=== PATIENT | male | born 1995 ===

== ENCOUNTER 2016-06-04 23:44 | Emergency (ER) | payer MEDICAID ==
[2016-06-05 00:03] VITALS: BMI 22.1
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
[2016-06-05 01:42] LABS: ADD MANUAL DIFF? NO
[2016-06-05 02:12] LABS: BASO # 0.02 K/mm3 (0.0-2.0); BASO % 0.2 % (0.0-3.0); EOS # 0.1 (0.0-0.7); GRAN # 5.99 (1.4-6.5); GRAN % 68.1 % (50.0-68.0); HEMATOCRIT 42.2 % (42.0-52.0); LYMPH # 1.7 (1.2-3.4); LYMPH % 19.1 % (22.0-35.0); MEAN CELL VOLUME 88.7 fL (80.0-105.0); MEAN CORPUSCULAR HEMOGLOBIN 30.9 pg (25.0-35.0); MEAN CORPUSCULAR HGB CONC 34.8 g/dl (31.0-37.0); MEAN PLATELET VOLUME 10.6 fl (7.0-11.0); MONO % 11.6 % (1.0-6.0); PLATELET COUNT 263 10^3/uL (120.0-450.0); RED CELL DISTRIBUTION WIDTH 12.8 % (11.5-14.5); WHITE BLOOD COUNT 8.8 10^3/ul (4.5-11.0)
[2016-06-05 02:23] LABS: ALB/GLOB RATIO 1.2 (1.1-1.8); ALKALINE PHOSPHATASE 94 U/L (38-133); ALT/SGPT 22 U/L (7-56); AST/SGOT 53 U/L (15-59); BILIRUBIN,TOTAL 0.6 mg/dL (0.2-1.3); BLOOD UREA NITROGEN 16 mg/dL (7-21); CALCIUM 8.8 mg/dL (8.4-10.5); CARBON DIOXIDE 19 mmol/L (21-33); CHLORIDE 103 mmol/L (98-107); GFR AFRICAN-AMERICAN > 60; GLUCOSE,RANDOM 112 mg/dL (70-110); POTASSIUM 3.6 mmol/L (3.6-5.0); SODIUM 139 mmol/L (132-148); TOTAL PROTEIN 8.4 g/dL (5.8-8.3)
--- NOTE | 2016-06-05 08:34 | RAD ---
HISTORY: medical clearance COMPARISON: No prior. FINDINGS: LUNGS: No active pulmonary disease. PLEURA: No significant pleural effusion identified, no pneumothorax apparent. CARDIOVASCULAR: Normal. OSSEOUS STRUCTURES: No significant abnormalities. VISUALIZED UPPER ABDOMEN: Normal. OTHER FINDINGS: None. IMPRESSION: No active disease.
[2016-06-05 13:27] VITALS: BP 124/79; PULSE 85; RESP 18; TEMP 98.2; O2SAT 96
--- NOTE | 2016-06-05 18:29 | CARD ---
APPROVED REPORT EKG Measurement Heart [id number] <Conclusion> Normal sinus rhythm Moderate voltage criteria for LVH, may be normal variant Borderline ECG
== END 2016-06-05 14:14 | disposition home or self-care (01) ==
LOC: ED 23:44
DX: F10.129 Alcohol abuse with intoxication, unspecified (principal); Y90.8 Blood alcohol level of 240 mg/100 ml or more
CPT/HCPCS: 71010; 80053; 80320; 80324; 80329; 80345; 80346; 80349; 80353; 80358; 80361; 83992; 85025; 93005; 96372; 99285; J1630; J2060

== ENCOUNTER 2016-07-10 11:49 | Emergency (ER) | payer MEDICAID ==
[2016-07-10 11:57] VITALS: RESP 18; TEMP 98.3; O2SAT 100; BMI 18.3
[2016-07-10] MEDS ORDERED: Sodium Chloride 0.9% 1,000 ML IV STA (12:04)
[2016-07-10] MEDS ORDERED: Morphine 2 mg/ml ISec IVP STA (12:05)
[2016-07-10] MEDS ORDERED: Levalbuterol 1.25 MG/3 ML Inhal Soln UD IH STA (12:11)
[2016-07-10 12:20] LABS: ADD MANUAL DIFF? NO
--- NOTE | 2016-07-10 12:21 | ED PDOC ---
Arrival/HPI - General Chief Complaint: GI Problem Time Seen by Provider: 07/10/16 11:52 Historian: Patient - History of Present Illness Narrative History of Present Illness (Text): 07/10/16 12:00 A 21 year old male, whose past medical history includes asthma and kidney stones , presents to the emergency department complaining of diffuse body pain, especial in the bilateral lower back, abdominal pain, nausea and vomiting. Patient reports he has been taking Advil for the back pain that has been present for a couple of days. He say last night when he took the Advil he began to feel nausea and had an episode of non bloody non bilious vomiting. He mentions he has been constipated for 2 days but denies any fever, urinary symptoms or other complaints at this time. PMD: Dr. Aponte Time/Duration: Other (couple of days) Symptom Onset: Sudden Symptom Course: Unchanged Quality: Other Activities at Onset: Rest Context: Home Past Medical History - Provider Review Nursing Documentation Reviewed: Yes - Infectious Disease Hx of Infectious Diseases: None - Tetanus Immunization Tetanus Immunization: Unknown - Cardiac Hx Cardiac Disorders: No Hx Hypertension: No - Pulmonary Hx Respiratory Disorders: Yes Hx Asthma: Yes - Neurological HX Cerebrovascular Accident: No Hx Seizures: No - HEENT Hx HEENT Disorder: No - Renal Hx Renal Disorder: Yes Hx Kidney Stones: Yes - Endocrine/Metabolic Hx Endocrine Disorders: No - Hematological/Oncological Hx Cancer: No - Integumentary Hx Dermatological Disorder: No - Musculoskeletal/Rheumatological Hx Musculoskeletal Disorders: Yes Hx Back Pain: Yes - Gastrointestinal Hx Gastrointestinal Disorders: No - Genitourinary/Gynecological Hx Sexually Transmitted Diseases: No - Psychiatric Hx Psychophysiologic Disorder: Yes Hx Depression: Yes Hx Substance Use: Yes (marijuana) - Anesthesia Hx Anesthesia: No Family/Social History - Physician Review Nursing Documentation Reviewed: Yes Family/Social History: Unknown Family HX Smoking Status: Heavy Smoker > 10 Cigarettes Daily Hx Alcohol Use: Yes Frequency of alcohol use: Socially Hx Substance Use: Yes (marijuana) Allergies/Home Meds Allergies/Adverse Reactions: Allergies No Known Allergies Allergy (Verified 07/10/16 12:08) Home Medications: Home Meds Medication Instructions Recorded Confirmed Albuterol HFA [Ventolin HFA 90 1 inh INH Q6 05/02/16 07/10/16 mcg/actuation (8 g)] Montelukast [Singulair] 10 mg PO DAILY 05/02/16 07/10/16 Loratadine [Claritin] 10 mg PO DAILY 07/10/16 07/10/16 Review of Systems - Physician Review All systems were reviewed & negative as marked: Yes - Review of Systems Constitutional: absent: Fevers Respiratory: absent: SOB, Cough Cardiovascular: absent: Chest Pain Gastrointestinal: Abdominal Pain, Constipation, Nausea, Vomiting. absent: Hematochezia Genitourinary Male: absent: Dysuria, Frequency, Hematuria, Urinary Output Changes Musculoskeletal: Back Pain, Myalgias Physical Exam Vital Signs Reviewed: Yes Vital Signs Temp Pulse Resp BP Pulse Ox 07/10/16 13:00 76 18 128/79 100 07/10/16 11:56 98.3 F 80 18 131/82 100 Temperature: Afebrile Blood Pressure: Normal Pulse: Regular Respiratory Rate: Normal Appearance: Positive for: Well-Appearing, Non-Toxic, Comfortable Pain Distress: None Mental Status: Positive for: Alert and Oriented X 3 - Systems Exam Head: Present: Atraumatic, Normocephalic Pupils: Present: PERRL Conjunctiva: Present: Normal Mouth: Present: Moist Mucous Membranes Pharnyx: Present: Normal. No: ERYTHEMA, EXUDATE Neck: Present: Normal Range of Motion Respiratory/Chest: Present: Clear to Auscultation, Good Air Exchange. No: Respiratory Distress, Accessory Muscle Use Cardiovascular: Present: Regular Rate and Rhythm, Normal S1, S2. No: Murmurs Abdomen: Present: Tenderness (tenderness with palpation to the epigastric region ), Normal Bowel Sounds. No: Distention, Peritoneal Signs, Rebound, Guarding Back: No: CVA Tenderness, Midline Tenderness, Paraspinal Tenderness Upper Extremity: Present: Normal Inspection. No: Cyanosis, Edema Lower Extremity: Present: Normal Inspection. No: Edema Neurological: Present: GCS=15, CN II-XII Intact, Speech Normal Skin: Present: Warm, Dry, Normal Color. No: Rashes Psychiatric: Present: Alert, Oriented x 3, Normal Insight, Normal Concentration Medical Decision Making ED Course and Treatment: 07/10/16 12:00 Impression: A 21 year old male with diffuse body pain, nausea and vomiting. Differential Diagnosis include but are not limited to: Gastritis vs. Viral illness vs. kidney stones Plan: -- Abdomen/Pelvis CT -- Labs -- Urinalysis -- Morphine, Pepcid, Xopenex, Zofran and IV Fluids -- Reassess and disposition Prior Visits: Notes and results from previous visits were reviewed. The patient last presented to the emergency department on 06/05/16 for alcohol intoxication and agitation. Progress Notes: 07/10/16 13:50 Abdomen/Pelvis CT: Creator : Billy Haile IMPRESSION: Bilateral small nonobstructing renal calculi without evidence of hydronephrosis or hydroureter. Suspicious for urinary bladder wall thickening. Correlate clinically for cystitis. Mild constipation. 07/10/16 14:41 Blood work is unremarkable; urine shows RBCs and CT a/p results are noted. Kidney stones are present but none in ureter and no HUN; doubt etiology of the pain as being related to the stones. Patient feeling better s/p meds - no indication for admission - will d/c on zantac to f/u pmd. - Lab Interpretations Lab Results: 07/10/16 12:10 07/10/16 12:10 Lab Results 07/10/16 12:10: Sodium 136, Potassium 3.5 L, Chloride 97 L, Carbon Dioxide 27, Anion Gap 16, BUN 14, Creatinine 0.8, Est GFR ( Amer) > 60, Est GFR (Non- Af Amer) > 60, Random Glucose 105, Calcium 10.1, Total Bilirubin 1.8 H, AST 28, ALT 33, Alkaline Phosphatase 100, Total Protein 8.7 H, Albumin 4.7, Globulin 4.0 , Albumin/Globulin Ratio 1.2, Lipase 61 07/10/16 12:10: Urine Color Yellow, Urine Appearance Clear, Urine pH 6.5, Ur Specific [place] 1.025, Urine Protein Trace H, Urine Glucose (UA) Negative, Urine Ketones 40 H, Urine Blood Small H, Urine Nitrate Negative, Urine Bilirubin Negative, Urine Urobilinogen 1.0 H, Ur Leukocyte Esterase Negative, Urine RBC Tntc, Urine WBC 2 - 5, Ur Epithelial Cells 3 - 4, Urine Bacteria Few 07/10/16 12:10: WBC 12.4 H D, RBC 4.92, Hgb 15.5, Hct 43.1, MCV 87.6, MCH 31.5, MCHC 36.0, RDW 12.9, Plt Count 289, MPV 10.1, Gran % 80.5 H, Lymph % (Auto) 11.2 L, [place] % (Auto) 7.6 H, Eos % (Auto) 0.6 L, Baso % (Auto) 0.1, Gran # 9.96 H, Lymph # 1.4, [place] # 0.9 H, Eos # 0.1, Baso # 0.01 I have reviewed the lab results: Yes - RAD Interpretation Radiology Orders: 07/10/16 12:04 ABD & PELVIS W/O PO OR IV CONT [CT] Stat - Medication Orders Current Medication Orders: Discontinued Medications Famotidine (Pepcid) 20 mg IVP STAT STA Stop: 07/10/16 12:05 Last Admin: 07/10/16 12:30 Dose: 20 mg Sodium Chloride (Sodium Chloride 0.9%) 1,000 mls @ 1,000 mls/hr IV .Q1H STA Stop: 07/10/16 13:03 Last Admin: 07/10/16 12:30 Dose: 1,000 mls/hr Dextrose/Sodium Chloride (Dextrose 5%/0.45% Ns 1000 Ml) 1,000 mls @ 999 mls/hr IV .Q1H1M STA Stop: 07/10/16 13:29 Last Admin: 07/10/16 13:05 Dose: 999 mls/hr Ketorolac Tromethamine (Toradol) 30 mg IVP STAT STA Stop: 07/10/16 14:08 Levalbuterol HCl (Xopenex) 1.25 mg IH STAT STA Stop: 07/10/16 12:12 Last Admin: 07/10/16 12:32 Dose: 1.25 mg Morphine Sulfate (Morphine) 2 mg IVP STAT STA Stop: 07/10/16 12:06 Last Admin: 07/10/16 12:31 Dose: 2 mg Ondansetron HCl (Zofran Inj) 4 mg IVP STAT STA Stop: 07/10/16 12:05 Last Admin: 07/10/16 12:31 Dose: 4 mg - Scribe Statement The provider has reviewed the documentation as recorded by the Sophieibanabelle Dukes Provider Scribe Attestation: All medical record entries made by the Scribanabelle were at my direction and personally dictated by me. I have reviewed the chart and agree that the record accurately reflects my personal performance of the history, physical exam, medical decision making, and the department course for this patient. I have also personally directed, reviewed, and agree with the discharge instructions and disposition. Disposition/Present on Arrival - Present on Arrival Any Indicators Present on Arrival: No History of DVT/PE: No History of Uncontrolled Diabetes: No Urinary Catheter: No History of Decub. Ulcer: No History Surgical Site Infection Following: None - Disposition Have Diagnosis and Disposition been Completed?: Yes Diagnosis: Abdominal pain, Vomiting, Kidney stones Disposition: HOME/ ROUTINE Disposition Time: 14:45 Patient Plan: Discharge Patient Problems: Current Active Problems Problem Status Onset Abdominal pain Acute Kidney stones Acute Vomiting Acute Condition: GOOD Discharge Instructions (ExitCare): Acute Abdominal Pain (ED), Kidney Stones (ED ), Acute Nausea and Vomiting (ED) Additional Instructions: Advance diet slowly as tolerated. Drink plenty of fluids. Take the medications as prescribed. Avoid advil/NSAIDS till resolution of pain. Follow up with your primary care doctor. Return to the emergency department if any new concerning symptoms. Prescriptions: Ondansetron ODT [Zofran ODT] 1 tab PO Q8H PRN #10 odt PRN Reason: Nausea/Vomiting Ranitidine HCl [Zantac] 1 tab PO BID #30 tablet Referrals: Malissa Aponte MD [Primary Care Provider] - Follow up with primary
[2016-07-10 12:25] LABS: BASO # 0.01 [, K/mm3] (0.0-2.0); BASO % 0.1 % (0.0-3.0); EOS # 0.1 (0.0-0.7); EOS % 0.6 % (1.5-5.0); GRAN # 9.96 (1.4-6.5); GRAN % 80.5 % (50.0-68.0); HEMATOCRIT 43.1 % (42.0-52.0); LYMPH # 1.4 (1.2-3.4); LYMPH % 11.2 % (22.0-35.0); MEAN CELL VOLUME 87.6 fL (80.0-105.0); MEAN CORPUSCULAR HEMOGLOBIN 31.5 pg (25.0-35.0); MEAN PLATELET VOLUME 10.1 fl (7.0-11.0); MONO # 0.9 (0.1-0.6); MONO % 7.6 % (1.0-6.0); PH,URINE 6.5 (4.7-8.0); PLATELET COUNT 289 [, 10^3/uL] (120.0-450.0); RED CELL DISTRIBUTION WIDTH 12.9 % (11.5-14.5); URINE BILIRUBIN NEGATIVE (NEGATIVE); URINE BLOOD SMALL (NEGATIVE); URINE GLUCOSE (UA) NEGATIVE (NEGATIVE); URINE KETONE 40 mg/dL (NEGATIVE); URINE LEUKOCYTE ESTERASE NEGATIVE Leu/uL (NEGATIVE); URINE PROTEIN TRACE mg/dL (<30 mg/dL); WHITE BLOOD COUNT 12.4 [, 10^3/ul] (4.5-11.0)
[2016-07-10 12:26] LABS: URINE APPEARANCE CLEAR (CLEAR); URINE COLOR YELLOW (YELLOW)
[2016-07-10] MEDS ORDERED: Dextrose 5%/0.45% NS 1,000 ML IV STA (12:29)
[2016-07-10 12:31] LABS: URINE RBC TNTC /hpf (0-2)
[2016-07-10 12:32] LABS: URINE BACTERIA FEW (NEG)
[2016-07-10 12:35] LABS: ALB/GLOB RATIO 1.2 (1.1-1.8); ALKALINE PHOSPHATASE 100 U/L (38-133); ALT/SGPT 33 U/L (7-56); AST/SGOT 28 U/L (15-59); BILIRUBIN,TOTAL 1.8 mg/dL (0.2-1.3); BLOOD UREA NITROGEN 14 mg/dL (7-21); CALCIUM 10.1 mg/dL (8.4-10.5); CARBON DIOXIDE 27 mmol/L (21-33); CHLORIDE 97 mmol/L (98-107); GFR AFRICAN-AMERICAN > 60; GLUCOSE,RANDOM 105 mg/dL (70-110); LIPASE 61 U/L (23-300); POTASSIUM 3.5 mmol/L (3.6-5.0); SODIUM 136 mmol/L (132-148); TOTAL PROTEIN 8.7 g/dL (5.8-8.3)
[2016-07-10 13:20] VITALS: BP 128/79; PULSE 76
--- NOTE | 2016-07-10 13:50 | CT ---
PROCEDURE: CT Abdomen and Pelvis without intravenous contrast HISTORY: b/l back pain, abd pain - h/o renal stones COMPARISON: None. TECHNIQUE: Axial and reformatted coronal and sagittal CT images of the abdomen and pelvis were obtained without IV or oral contrast administration.. Contrast Dose: 0 Radiation dose: Total exam DLP = 200.69 mGy-cm. This CT exam was performed using one or more of the following dose reduction techniques: Automated exposure control, adjustment of the mA and/or kV according to patient size, and/or use of iterative reconstruction technique. FINDINGS: LOWER THORAX: Unremarkable. LIVER: Unremarkable. No gross lesion or ductal dilatation. GALLBLADDER AND BILE DUCTS: Unremarkable. PANCREAS: Unremarkable. No gross lesion or ductal dilatation. SPLEEN: Unremarkable. ADRENALS: Unremarkable. No mass. KIDNEYS AND URETERS: There ROP small foci of calcification in both kidneys suggestive of nonobstructing calculi. The largest presumed calculus seen at the upper pole of the right kidney measures 3 millimeter. No evidence of hydronephrosis or hydroureter. VASCULATURE: Unremarkable. No aortic aneurysm. BOWEL: Unremarkable. No obstruction. No gross mural thickening. Mild constipation is noted. APPENDIX: Unremarkable. Normal appendix. PERITONEUM: Unremarkable. No free fluid. No free air. LYMPH NODES: Unremarkable. No enlarged lymph nodes. BLADDER: Suspicious for diffuse urinary bladder wall thickening. REPRODUCTIVE: Unremarkable. BONES: No acute fracture. OTHER FINDINGS: None. IMPRESSION: Bilateral small nonobstructing renal calculi without evidence of hydronephrosis or hydroureter. Suspicious for urinary bladder wall thickening. Correlate clinically for cystitis. Mild constipation.
== END 2016-07-10 16:00 | disposition home or self-care (01) ==
LOC: ED 11:49
DX: N20.0 Calculus of kidney (principal); R11.10 Vomiting, unspecified; R10.9 Unspecified abdominal pain
CPT/HCPCS: 74176; 80053; 81001; 83690; 85025; 96374; 96375; 99284; J2270; J2405; J7040; J7042